=== PATIENT | male | born 1940 | race Caucasian/White ===

== ENCOUNTER 2018-08-11 09:46 | Emergency (ER) | payer MEDICARE, SELFPAY ==
[2018-08-11 09:53] VITALS: BP 159/84; PULSE 63; RESP 12; TEMP 36.8; O2SAT 98
--- NOTE | 2018-08-11 10:01 | W.ED.GENAD ---
Discharge Plan Disposition Patient Disposition: HOME Condition: Good Discharge Details Chief Complaint: Chest/Rib Clinical Impression: Multiple rib fractures Primary Care Provider: Ammy Perez ED Provider: Jose Cedeño Home Meds and New Rx's Prescriptions: New lidocaine 5 % adhesive patch,medicated 1 patch TP Q12H PRN PRN (Reason: pain) Qty: 30 RF: 0 Continue pravastatin 40 MG tablet 40 mg PO DAILY RF: 0 levothyroxine 25 MCG tablet 12.5 mcg PO DAILY RF: 0 omeprazole 10 MG capsule,delayed release(DR/EC) 20 mg PO DAILY RF: 0 alfuzosin 10 MG tablet extended release 24 hr 10 mg PO DAILY RF: 0 Discharge Instructions Instructions: Rib Fracture (ED) Additional Instructions: If you began running fever chills, shortness of breath, difficulty breathing or worsening symptoms feel free to return to the emergency department as needed for reassessment. Otherwise follow-up with your primary care provider for any further concerns. Referrals: Ammy Perez [Primary Care Provider] - (As needed) Medical Decision Making MDM Narrative Medical decision making narrative: Patient presenting to the emergency department status post mechanical fall 1 week ago which he states he tripped over a railroad tie in his driveway and landed on the [place] driveway. He states that he has had left lateral rib pain that seems to be worse with lying on the left side, deep breathing, or coughing. He has been taking Aleve intermittently for the past week which has helped control his pain but last night had significant amount of pain to discomfort with trying to sleep. Physical exam does show tenderness to the left mid axillary lower ribs without specific point tenderness and no crepitus is noted. Otherwise lungs are clear with normal expansion and regular cardiac examination. I do feel that given patient's significant amount of pain and tenderness that chest x-ray and rib series may be beneficial for further evaluating possible nondisplaced rib fracture. Pending results patient given lidocaine patch. Spoke with radiologist and radiologist states nondisplaced rib fracture of left 8,9, 10th rib. Otherwise no pneumothorax, no hemothorax, and chest cavity is otherwise unremarkable. Given the patient is otherwise stable and has been 1 week since initial incident I feel that patient is able to be safely discharged home with incentive spirometer. Patient was offered opiate pain medication but stated that he did not need this at this time I would continue to take [id number] pain medication as needed. Patient was recommended lidocaine patch to use for discomfort and to follow-up with his primary care provider for reassessment as needed or to return immediately for any fever chills, difficulty breathing, shortness of breath. Diagnosis and plan of care patient states no further needs, questions, or concerns at this time Imaging Data Radiologic Study: Attestation: I personally reviewed and interpreted this imaging study as follows: Imaging: X-Ray Radiologist's impression: Nondisplaced rib fractures on the left side of 8 9 and 10 HPI General Mode of arrival: ambulatory. Date/Time Provider Initiated Documentation: 08/11/18 09:59. Limitations to Documentation: no limitations. Information obtained by: patient. History of Present Illness 78 year old M presents to the emergency department with the chief complaint of Left rib/chest pain after fall, described as mild and moderate, with intensity rated at 1. Quality is described as aching, and is localized to the chest and left. Patient started experiencing this week(s) (1) and it has been constant. No relieving factors improve symptom(s), Other factors that worsen symptoms (Pressure to the area or lying on left side) . Patient notes no other symptoms.. Related Data Home Medications Medication Instructions Recorded Confirmed alfuzosin 10 mg PO DAILY tab-cap 05/31/18 08/11/18 levothyroxine 12.5 mcg PO DAILY tab-cap 05/31/18 08/11/18 omeprazole 20 mg PO DAILY tab-cap 05/31/18 08/11/18 pravastatin 40 mg PO DAILY tab-cap 05/31/18 08/11/18 Previous Rx's Medication Instructions Recorded lidocaine 1 patch TP Q12H PRN PRN #30 each 08/11/18 Allergies Allergy/AdvReac Type Severity Reaction Status Date / Time No Known Allergies Allergy Unverified 08/11/18 09:58 General Stated Complaint: Chest/Rib CHRIS: 3 Review of Systems Constitutional Denies body ache(s), Denies chills and Denies fever(s) Cardiovascular Reports as per HPI, Denies syncope and Denies dyspnea Respiratory Reports as per HPI, Reports pain on inspiration, Reports pain with cough and Denies dyspnea Gastrointestinal Denies abdominal pain, Denies nausea and Denies vomiting Integumentary/Breasts Denies rash Neurologic Denies confusion, Denies syncope and Denies sensory deficit Psychiatric Denies confusion PFSH Social History Smoking/Tobacco Use Status: Former Tobacco Use Exam Const General: cooperative, no acute distress and not ill appearing Orientation: alert, awake and oriented x3 HENMT Mouth: moist mucous membranes Chest Chest: no crepitus and localized rib tenderness with anteroposterior compression (mid axilla) Resp Effort & Inspection: normal respiratory effort, able to speak in complete sentences and no respiratory distress Cardio Rate: regular rate Rhythm: regular rhythm Heart Sounds: S1 normal and S2 normal Skin General skin exam: no rashes or lesions noted Neuro General: alert, awake, oriented x3, moves all extremities and no focal motor deficits Sensory Exam: no sensory deficits noted Course Vital Signs Temperature 36.8 C 08/11/18 09:53 Pulse 63 08/11/18 09:53 Respiratory Rate 12 08/11/18 09:53 Blood Pressure 159/84 H 08/11/18 09:53 Pulse Oximetry 98 08/11/18 09:53 Temperature 36.8 C 08/11/18 09:53 Pulse 63 08/11/18 09:53 Respiratory Rate 12 08/11/18 09:53 Blood Pressure 159/84 H 08/11/18 09:53 Pulse Oximetry 98 08/11/18 09:53
--- NOTE | 2018-08-11 10:04 | ED.GENADUL_ITS ---
Discharge Plan Disposition Patient Disposition: HOME Condition: Good Discharge Details Chief Complaint: Chest/Rib Clinical Impression: Multiple rib fractures Primary Care Provider: Ammy Perez ED Provider: Jose Cedeño Home Meds and New Rx's Prescriptions: New lidocaine 5 % adhesive patch,medicated 1 patch TP Q12H PRN PRN (Reason: pain) Qty: 30 RF: 0 Continue pravastatin 40 MG tablet 40 mg PO DAILY RF: 0 levothyroxine 25 MCG tablet 12.5 mcg PO DAILY RF: 0 omeprazole 10 MG capsule,delayed release(DR/EC) 20 mg PO DAILY RF: 0 alfuzosin 10 MG tablet extended release 24 hr 10 mg PO DAILY RF: 0 Discharge Instructions Instructions: Rib Fracture (ED) Additional Instructions: If you began running fever chills, shortness of breath, difficulty breathing or worsening symptoms feel free to return to the emergency department as needed for reassessment. Otherwise follow-up with your primary care provider for any further concerns. Referrals: Ammy Perez [Primary Care Provider] - (As needed) Medical Decision Making MDM Narrative Medical decision making narrative: Patient presenting to the emergency department status post mechanical fall 1 week ago which he states he tripped over a railroad tie in his driveway and landed on the [place] driveway. He states that he has had left lateral rib pain that seems to be worse with lying on the left side, deep breathing, or coughing. He has been taking Aleve intermittently for the past week which has helped control his pain but last night had significant amount of pain to discomfort with trying to sleep. Physical exam does show tenderness to the left mid axillary lower ribs without specific point tenderness and no crepitus is noted. Otherwise lungs are clear with normal expansion and regular cardiac examination. I do feel that given patient's significant amount of pain and tenderness that chest x-ray and rib series may be beneficial for further evaluating possible nondisplaced rib fracture. Pending results patient given lidocaine patch. Spoke with radiologist and radiologist states nondisplaced rib fracture of left 8,9, 10th rib. Otherwise no pneumothorax, no hemothorax, and chest cavity is otherwise unremarkable. Given the patient is otherwise stable and has been 1 week since initial incident I feel that patient is able to be safely discharged home with incentive spirometer. Patient was offered opiate pain medication but stated that he did not need this at this time I would continue to take over-the- counter pain medication as needed. Patient was recommended lidocaine patch to use for discomfort and to follow-up with his primary care provider for reassessment as needed or to return immediately for any fever chills, difficulty breathing, shortness of breath. Diagnosis and plan of care patient states no further needs, questions, or concerns at this time Imaging Data Radiologic Study: Attestation: I personally reviewed and interpreted this imaging study as follows: Imaging: X-Ray Radiologist's impression: Nondisplaced rib fractures on the left side of 8 9 and 10 HPI General Mode of arrival: ambulatory . Date/Time Provider Initiated Documentation: 08/11/18 09:59 . Limitations to Documentation: no limitations . Information obtained by: patient . History of Present Illness 78 year old M presents to the emergency department with the chief complaint of Left rib/chest pain after fall, described as mild and moderate, with intensity rated at 1. Quality is described as aching, and is localized to the chest and left. Patient started experiencing this week(s) (1) and it has been constant. No relieving factors improve symptom(s), Other factors that worsen symptoms (Pressure to the area or lying on left side) . Patient notes no other symptoms.. Related Data Home Medications Medication Instructions Recorded Confirmed alfuzosin 10 mg PO DAILY tab-cap 05/31/18 08/11/18 levothyroxine 12.5 mcg PO DAILY tab-cap 05/31/18 08/11/18 omeprazole 20 mg PO DAILY tab-cap 05/31/18 08/11/18 pravastatin 40 mg PO DAILY tab-cap 05/31/18 08/11/18 Previous Rx's Medication Instructions Recorded lidocaine 1 patch TP Q12H PRN PRN #30 each 08/11/18 Allergies Allergy/AdvReac Type Severity Reaction Status Date / Time No Known Allergies Allergy Unverified 08/11/18 09:58 General Stated Complaint: Chest/Rib CHRIS: 3 Review of Systems Constitutional Denies body ache(s), Denies chills and Denies fever(s) Cardiovascular Reports as per HPI, Denies syncope and Denies dyspnea Respiratory Reports as per HPI, Reports pain on inspiration, Reports pain with cough and Denies dyspnea Gastrointestinal Denies abdominal pain, Denies nausea and Denies vomiting Integumentary/Breasts Denies rash Neurologic Denies confusion, Denies syncope and Denies sensory deficit Psychiatric Denies confusion PFSH Social History Smoking/Tobacco Use Status: Former Tobacco Use Exam Const General: cooperative, no acute distress and not ill appearing Orientation: alert, awake and oriented x3 HENMT Mouth: moist mucous membranes Chest Chest: no crepitus and localized rib tenderness with anteroposterior compression (mid axilla) Resp Effort & Inspection: normal respiratory effort, able to speak in complete sentences and no respiratory distress Cardio Rate: regular rate Rhythm: regular rhythm Heart Sounds: S1 normal and S2 normal Skin General skin exam: no rashes or lesions noted Neuro General: alert, awake, oriented x3, moves all extremities and no focal motor deficits Sensory Exam: no sensory deficits noted Course Vital Signs Temperature 36.8 C 08/11/18 09:53 Pulse 63 08/11/18 09:53 Respiratory Rate 12 08/11/18 09:53 Blood Pressure 159/84 H 08/11/18 09:53 Pulse Oximetry 98 08/11/18 09:53 Temperature 36.8 C 08/11/18 09:53 Pulse 63 08/11/18 09:53 Respiratory Rate 12 08/11/18 09:53 Blood Pressure 159/84 H 08/11/18 09:53 Pulse Oximetry 98 08/11/18 09:53
--- NOTE | 2018-08-11 10:10 | DI.RAD_ITS ---
SYMPTOM/DIAGNOSIS: LT RIB PAIN AFTER FALL PA AND LATERAL CHEST: The heart is normal in size. The lungs are clear. The mediastinal structures and pleura appear intact. CONCLUSION: Normal chest. LEFT RIBS: There are nondisplaced fractures of the anterior lateral portion of the left eighth, ninth and tenth ribs.
[2018-08-11] MEDS: Lidocaine 5% Patch 1 PATCH TP (10:27)
[2018-08-11 11:02] VITALS: BP 159/84; PULSE 63; RESP 12; TEMP 36.8; O2SAT 98
== END 2018-08-11 11:02 | disposition home or self-care (01) ==
PROVIDERS: Emergency Provider Nurse Practitioner Family; PCP Nurse Practitioner Family
DX: S22.42XA Multiple fractures of ribs, left side, initial encounter for closed fracture (principal); W01.198A Fall on same level from slipping, tripping and stumbling with subsequent striking against other object, initial encounter
CPT/HCPCS: 99284; 71046; 71100

== ENCOUNTER → 2019-03-23 08:26 | Outpatient (BNVA) | payer MEDICARE, SELFPAY | PROVIDERS: PCP Nurse Practitioner Family; Visit Provider Nurse Practitioner Gerontology | DX: N40.1 Benign prostatic hyperplasia with lower urinary tract symptoms (principal); R33.8 Other retention of urine | CPT/HCPCS: 51703; 99213 ==

== ENCOUNTER → 2019-03-24 12:22 | Outpatient (BNVA) | payer MEDICARE, SELFPAY | PROVIDERS: PCP Nurse Practitioner Family; Visit Provider Urology | DX: N40.1 Benign prostatic hyperplasia with lower urinary tract symptoms (principal); R33.8 Other retention of urine | CPT/HCPCS: 51798; 99212; 99213 ==

== ENCOUNTER 2019-04-04 12:41 | Outpatient (REF) | payer MEDICARE, SELFPAY ==
[2019-04-04 23:05] LABS: Magnesium 1.8 mg/dL (1.8-2.4); Vitamin B12 778 pg/mL (193-986)
== END 2019-04-04 13:01 ==
LOC: NCHCN 12:41
PROVIDERS: PCP Nurse Practitioner Family; Visit Provider Nurse Practitioner Family
DX: R30.0 Dysuria (principal); E78.5 Hyperlipidemia, unspecified; I10 Essential (primary) hypertension; F41.8 Other specified anxiety disorders; E03.9 Hypothyroidism, unspecified
CPT/HCPCS: 82607; 83735; 84443; 87086

== ENCOUNTER → 2019-04-06 09:15 | Outpatient (BNVA) | payer MEDICARE, SELFPAY | PROVIDERS: PCP Nurse Practitioner Family; Visit Provider Nurse Practitioner Gerontology | DX: N40.1 Benign prostatic hyperplasia with lower urinary tract symptoms (principal); R33.8 Other retention of urine | CPT/HCPCS: 51798; 81003; 99213 ==

== ENCOUNTER 2019-04-06 11:02 | Outpatient (REF) | payer MEDICARE, SELFPAY | END 2019-04-06 11:22 | LOC: LBN 11:02 | PROVIDERS: PCP Nurse Practitioner Family; Visit Provider Nurse Practitioner Gerontology | DX: N40.1 Benign prostatic hyperplasia with lower urinary tract symptoms (principal); R33.8 Other retention of urine | CPT/HCPCS: 87086 ==

== ENCOUNTER → 2019-05-09 13:40 | Outpatient (BNVA) | payer MEDICARE, SELFPAY | PROVIDERS: PCP Nurse Practitioner Family; Visit Provider Urology | DX: N40.1 Benign prostatic hyperplasia with lower urinary tract symptoms (principal); R33.8 Other retention of urine | CPT/HCPCS: 99213 ==

== ENCOUNTER 2019-05-11 00:25 | Outpatient (CLI) | payer MEDICARE, SELFPAY ==
--- NOTE | 2019-05-11 08:06 | DI.US_ITS ---
SYMPTOM/DIAGNOSIS: FATTY LIVER K76.0 ABDOMINAL ULTRASOUND: The abdominal aorta is obscured. The vena cava is intact. The liver measures 14.4 cm in maximal diameter and is echogenic consistent with fatty infiltration. The gallbladder is intact. There are no gallstones or evidence of biliary dilatation. The pancreas is unremarkable. The spleen measures 9 cm and is acoustically homogeneous. The left kidney measures 11.9 cm The right kidney measures 12 cm. There is no evidence of hydronephrosis, mass or cyst. SUMMARY: Findings consistent with fatty infiltration of the liver.
== END 2019-05-11 00:45 ==
PROVIDERS: PCP Nurse Practitioner Family; Visit Provider Nurse Practitioner Family
DX: K76.0 Fatty (change of) liver, not elsewhere classified (principal)
CPT/HCPCS: 76700

== ENCOUNTER 2019-07-23 09:03 | Emergency (ER) | payer MEDICARE, SELFPAY ==
[2019-07-23 09:09] VITALS: BP 130/75; PULSE 76; RESP 16; TEMP 36.4; O2SAT 98
[2019-07-23 09:11] VITALS: RESP 16
--- NOTE | 2019-07-23 09:30 | ED.GENADUL_ITS ---
Discharge Plan Disposition Patient Disposition: HOME Discharge Details Chief Complaint: GenMedical Clinical Impression: Conjunctivitis of both eyes, Acute viral syndrome Primary Care Provider: Ammy Perez ED Provider: Brad Vasquez Home Meds and New Rx's Prescriptions: New erythromycin 5 mg/gram (0.5 %) ointment 0.5 inch OP QID Qty: 3.5 RF: 0 Continued finasteride [Proscar] 5 mg tablet 5 mg PO DAILY Qty: 90 RF: 0 sildenafil [Viagra] 100 mg tablet 100 mg PO DAILY PRN (Reason: sexual activity) Qty: 10 RF: 12 sildenafil (antihypertensive) 20 mg tablet 20 mg PO DAILY MDD 5 Qty: 30 RF: 12 pravastatin 40 MG tablet 40 mg PO DAILY RF: 0 levothyroxine 25 MCG tablet 12.5 mcg PO DAILY RF: 0 omeprazole 10 MG capsule,delayed release(DR/EC) 20 mg PO DAILY RF: 0 alfuzosin 10 MG tablet extended release 24 hr 10 mg PO DAILY RF: 0 Discharge Instructions Instructions: Viral Syndrome (ED), Conjunctivitis (ED) Additional Instructions: Please use erythromycin eye ointment: Apply 1/2 inch to conjunctival sac 4 times daily for 7 days. Please contact your primary care physician to arrange follow-up. Return to the ER for any worsening or new concerning symptoms. Referrals: Ammy Perez [Primary Care Provider] - Discharge Data Discharge Date/Time-TO BE ENTERED AT DEPARTURE: 07/23/19 09:39 Medical Decision Making 78-year-old male here with generalized flulike illness over the past 5 days with cough, postnasal drip and sore throat with 2 days of conjunctivitis left greater than right. Grandchild who was recently visiting has same. Suspect viral illness. Plan to cover with erythromycin opth ointment. Usual and customary discharge instructions were provided. HPI General Mode of arrival: ambulatory . Date/Time Provider Initiated Documentation: 07/23/19 09:12 . Limitations to Documentation: no limitations . Information obtained by: patient . HPI Narrative: 78-year-old male presents with chief complaint of eye inflammation. Patient notes eyes have been inflamed, red, itchy with watery discharge over the past 2 days. Symptoms started in left eye and of spread to right eye. Symptoms are moderate. No modifiers. He notes associated flulike illness including cough, sore throat over the past 5 days. Last week his grandchild was visiting who subsequently has developed conjunctivitis. No associated visual changes. No eye pain. Related Data Home Medications Medication Instructions Recorded Confirmed alfuzosin 10 mg PO DAILY tab-cap 05/31/18 07/23/19 levothyroxine 12.5 mcg PO DAILY tab-cap 05/31/18 07/23/19 omeprazole 20 mg PO DAILY tab-cap 05/31/18 07/23/19 pravastatin 40 mg PO DAILY tab-cap 05/31/18 07/23/19 finasteride 5 mg tablet 5 mg PO DAILY #90 tab 03/23/19 07/23/19 sildenafil (antihypertensive) 20 20 mg PO DAILY #30 tab MDD 5 05/09/19 07/23/19 mg tablet sildenafil 100 mg tablet 100 mg PO DAILY PRN #10 tab 05/09/19 07/23/19 erythromycin 0.5 inch OP QID #3.5 gm 07/23/19 Previous Rx's Medication Instructions Recorded finasteride 5 mg tablet 5 mg PO DAILY #90 tab 03/23/19 sildenafil (antihypertensive) 20 20 mg PO DAILY #30 tab MDD 5 05/09/19 mg tablet sildenafil 100 mg tablet 100 mg PO DAILY PRN #10 tab 05/09/19 erythromycin 0.5 inch OP QID #3.5 gm 07/23/19 Allergies Allergy/AdvReac Type Severity Reaction Status Date / Time No Known Allergies Allergy Unverified 08/11/18 09:58 General Stated Complaint: GenMedical CHRIS: 4 Review of Systems Constitutional Denies chills, Denies fever(s) and Denies headache(s) Eyes Reports as per HPI ENT Reports as per HPI and Denies headache(s) Cardiovascular Denies chest pain and Denies dyspnea Respiratory Reports cough and Denies dyspnea Gastrointestinal Denies abdominal pain and Denies nausea Integumentary/Breasts Denies rash Neurologic Denies headache(s) [facility] Social History Smoking/Tobacco Use Status: Never Drug use: Never Substance use type: does not use Do you feel safe in your relationship?: Yes Exam Const General: cooperative and no acute distress HENMT Head: normocephalic General nose exam: external nose normal and nares normal Face and sinus: sinuses nontender and face symmetric Mouth: moist mucous membranes Throat: posterior oropharynx normal and uvula midline Eyes Periorbital: periorbital findings normal Eyelids: eyelids normal Conjunctivae: conjunctival abnormality bilaterally conjunctival chemosis and conjunctival injection diffuse; without discharge Pupils: PERRL EOM: EOM intact bilaterally Resp Auscultation: clear to auscultation bilaterally, no rales, no rhonchi and no wheezes Cardio Jugular venous pressure: no JVD Rate: regular rate and not tachycardic Rhythm: regular rhythm Skin General skin exam: no rashes or lesions noted Neuro General: alert, awake and tone normal Course Vital Signs Temperature 36.4 C 07/23/19 09:09 Pulse 76 07/23/19 09:09 Respiratory Rate 16 07/23/19 09:09 Blood Pressure 130/75 07/23/19 09:09 Pulse Oximetry 98 07/23/19 09:09 Temperature 36.4 C 07/23/19 09:09 Temperature Source Oral 07/23/19 09:09 Pulse 76 07/23/19 09:09 Respiratory Rate 16 07/23/19 09:11 Respiratory Effort Non-Labored 07/23/19 09:11 Respiratory Depth Normal 07/23/19 09:11 Respiratory Pattern Normal 07/23/19 09:11 Blood Pressure 130/75 07/23/19 09:09 Blood Pressure Position Supine 07/23/19 09:09 Pulse Oximetry 98 07/23/19 09:09 Oxygen Delivery Method Room Air 07/23/19 09:09 Oxygen Flow Rate 0 07/23/19 09:09 Pain Level 0 07/23/19 09:09
[2019-07-23] MEDS: Erythromycin Ophth Oint 3.5 GM TUBE OU (09:40)
== END 2019-07-23 09:39 | disposition home or self-care (01) ==
PROVIDERS: Emergency Provider Student in an Organized Health Care Education/Training Program; PCP Nurse Practitioner Family
DX: H10.33 Unspecified acute conjunctivitis, bilateral (principal); R05 Cough; R09.82 Postnasal drip; B34.9 Viral infection, unspecified; J02.8 Acute pharyngitis due to other specified organisms
CPT/HCPCS: 99283

== ENCOUNTER → 2019-10-24 10:06 | Outpatient (BNVA) | payer MEDICARE, SELFPAY | PROVIDERS: PCP Nurse Practitioner Family; Referring Provider Nurse Practitioner Family; Visit Provider Nurse Practitioner Gerontology | DX: N40.1 Benign prostatic hyperplasia with lower urinary tract symptoms (principal); R33.8 Other retention of urine; R35.0 Frequency of micturition; N41.9 Inflammatory disease of prostate, unspecified | CPT/HCPCS: 81003; 99213 ==

== ENCOUNTER 2019-10-24 14:54 | Outpatient (REF) | payer MEDICARE, SELFPAY | END 2019-10-24 15:14 | LOC: LBN 14:54 | PROVIDERS: PCP Nurse Practitioner Family; Visit Provider Nurse Practitioner Gerontology | DX: R35.0 Frequency of micturition (principal); R33.8 Other retention of urine; N40.1 Benign prostatic hyperplasia with lower urinary tract symptoms | CPT/HCPCS: 87086 ==

== ENCOUNTER → 2020-04-23 11:14 | Outpatient (BNVA) | payer MEDICARE, SELFPAY | PROVIDERS: PCP Nurse Practitioner Family; Referring Provider Nurse Practitioner Family; Visit Provider Nurse Practitioner Gerontology | DX: N40.1 Benign prostatic hyperplasia with lower urinary tract symptoms (principal); R33.8 Other retention of urine; N41.9 Inflammatory disease of prostate, unspecified | CPT/HCPCS: 99213 ==

== ENCOUNTER → 2021-01-08 13:09 | Outpatient (BNVA) | payer MEDICARE, SELFPAY | PROVIDERS: PCP Nurse Practitioner Family; Referring Provider Nurse Practitioner Family; Visit Provider Nurse Practitioner Gerontology | DX: N40.1 Benign prostatic hyperplasia with lower urinary tract symptoms (principal); R35.1 Nocturia; R33.8 Other retention of urine | CPT/HCPCS: 99442 ==

== ENCOUNTER → 2021-10-27 13:08 | Outpatient (BNVA) | payer MEDICARE, SELFPAY | PROVIDERS: PCP Nurse Practitioner Family; Referring Provider Nurse Practitioner Family; Visit Provider Nurse Practitioner Gerontology | DX: N40.1 Benign prostatic hyperplasia with lower urinary tract symptoms (principal); R33.8 Other retention of urine; N41.9 Inflammatory disease of prostate, unspecified | CPT/HCPCS: 99214 ==

== ENCOUNTER → 2022-07-15 13:54 | Outpatient (BNVA) | payer MEDICARE, SELFPAY | PROVIDERS: PCP Nurse Practitioner Family; Referring Provider Nurse Practitioner Family; Visit Provider Nurse Practitioner Gerontology | DX: N40.1 Benign prostatic hyperplasia with lower urinary tract symptoms (principal); R33.8 Other retention of urine | CPT/HCPCS: 51798; 99214 ==

== ENCOUNTER → 2022-09-02 14:12 | Outpatient (BNVA) | payer MEDICARE, SELFPAY | PROVIDERS: PCP Nurse Practitioner Family; Referring Provider Nurse Practitioner Family; Visit Provider Nurse Practitioner Gerontology | DX: R30.0 Dysuria (principal); R39.15 Urgency of urination; R35.0 Frequency of micturition; N40.1 Benign prostatic hyperplasia with lower urinary tract symptoms | CPT/HCPCS: 51798; 81003; 99213 ==

== ENCOUNTER 2022-09-02 19:42 | Outpatient (REF) | payer MEDICARE, SELFPAY | END 2022-09-02 19:43 | disposition home or self-care (01) | LOC: LBN 19:42 | PROVIDERS: PCP Nurse Practitioner Family; Visit Provider Nurse Practitioner Gerontology | DX: N40.1 Benign prostatic hyperplasia with lower urinary tract symptoms (principal); R33.8 Other retention of urine | CPT/HCPCS: 87086 ==

== ENCOUNTER → 2023-05-27 15:02 | Outpatient (BNVA) | payer MEDICARE, SELFPAY | PROVIDERS: PCP Nurse Practitioner Family; Visit Provider Nurse Practitioner Gerontology | DX: N32.81 Overactive bladder (principal); R39.89 Other symptoms and signs involving the genitourinary system; N52.9 Male erectile dysfunction, unspecified | CPT/HCPCS: 99214 ==

== ENCOUNTER → 2024-06-07 14:19 | Outpatient (BNVA) | payer MEDICARE, SELFPAY | PROVIDERS: PCP Nurse Practitioner Family; Visit Provider Nurse Practitioner Gerontology | DX: N40.1 Benign prostatic hyperplasia with lower urinary tract symptoms (principal); R33.8 Other retention of urine | CPT/HCPCS: 99214 ==

== ENCOUNTER → 2025-02-12 14:40 | Outpatient (BNVA) | payer MEDICARE, SELFPAY | PROVIDERS: PCP Nurse Practitioner Family; Referring Provider Nurse Practitioner Family; Visit Provider Nurse Practitioner Gerontology | DX: N40.1 Benign prostatic hyperplasia with lower urinary tract symptoms (principal); R33.8 Other retention of urine | CPT/HCPCS: NC OV ==

== ENCOUNTER → 2025-06-20 07:54 | Outpatient (BNVA) | payer MEDICARE, SELFPAY | PROVIDERS: PCP Nurse Practitioner Family; Referring Provider Nurse Practitioner Family; Visit Provider Nurse Practitioner Gerontology | DX: N40.1 Benign prostatic hyperplasia with lower urinary tract symptoms (principal); R33.8 Other retention of urine; N32.81 Overactive bladder; R39.9 Unspecified symptoms and signs involving the genitourinary system | CPT/HCPCS: 99214; 51798 ==